=== PATIENT | female | born 1980 | race Caucasian/White ===

== ENCOUNTER 2023-12-25 11:35 | Emergency (ER) | payer OTHER ==
[2023-12-25 13:13] VITALS: BP 134/88; PULSE 85; RESP 18; TEMP 98.2; BMI 37.0
[2023-12-25 13:14] LABS: HEMATOCRIT 41.2 % (32.4-45.2); HEMOGLOBIN 13.2 G/dL (10.7-15.3); MCH 28.7 pg (25.7-33.7); MEAN CELL VOLUME 89.8 fl (80-96); MEAN PLT VOLUME 9.1 fl (7.5-11.1); PLATELET COUNT 304.4 10^3/uL (134-434); RBC 4.59 10^6/uL (3.60-5.2); RDW 14.2 % (11.6-15.6); WHITE BLOOD COUNT 7.9 10^3/uL (4.0-10.8)
[2023-12-25 13:23] LABS: ALBUMIN 4.2 g/dl (3.4-5.0); BILIRUBIN,TOTAL 0.4 mg/dl (0.2-1); CREATININE 0.8 mg/dl (0.6-1.3); POTASSIUM 3.8 mmol/L (3.5-5.1); TOT PROT 6.8 g/dl (6.4-8.2)
[2023-12-25 14:29] LABS: PLATELET ESTIMATE ADEQUATE
== END 2023-12-25 15:06 | disposition home or self-care (01) ==
LOC: FER 11:35
DX: O20.9 Hemorrhage in early pregnancy, unspecified (principal); Z3A.01 Less than 8 weeks gestation of pregnancy
CPT/HCPCS: 36415; 76817-TC; 80053; 81003; 81015; 84702; 84703; 85027; 86850; 86900; 86901; 87086; 99284-25